=== PATIENT | female | born 1970 | race Hispanic/Latino ===

== ENCOUNTER 2020-12-23 12:56 | Emergency (ER) | payer OTHER ==
[~2020-12-23] VITALS: Ht 162.6 cm; Wt 90.7 kg
[~2020-12-23 12:56] MED LIST: DOXYCYCLINE HY100 MG PO
--- OUTSIDE RECORDS SUMMARY | 2020-12-23 13:00 | XMS ---
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 [facility]her[facility] VISIT COUNT (12 MO.) [address] TOTAL 4 NOTE: Visits indicate total known visits. ED/UCC VISIT TRACKING (12 MO.) 12/23/2020 12:58 [facility] TYPE: Emergency COMPLAINT: - URINE PROBLEM 12/09/2020 11:22 [facility] TYPE: Emergency DIAGNOSES: - Acute cystitis without hematuria - POSSIBLE UTI 11/07/2020 12:38 [facility] TYPE: Emergency DIAGNOSES: - Cystitis, unspecified without hematuria - uti 09/01/2020 16:24 [facility] TYPE: Emergency DIAGNOSES: - Epigastric pain - BLOATING INPATIENT VISIT TRACKING (12 MO.) No inpatient visits to display in this time frame [id number]
[2020-12-23] MEDS ORDERED: PYRIDIUM200 MG PO (13:25)
[2020-12-23] MEDS ORDERED: KEFLEX750 MG PO (13:25)
== END 2020-12-23 16:33 | disposition home or self-care (01) ==
LOC: ED 12:56
DX: R10.30 Lower abdominal pain, unspecified (principal); E11.9 Type 2 diabetes mellitus without complications; Z79.899 Other long term (current) drug therapy
CPT/HCPCS: 74177; 80053; 81001; 85025; 99284-25; Q9967

== ENCOUNTER 2022-09-10 15:15 | Emergency (ER) | payer OTHER ==
[~2022-09-10] VITALS: Ht 162.6 cm; Wt 81.2 kg
[~2022-09-10 15:15] MED LIST changes: +KEFLEX750 MG PO; +PYRIDIUM200 MG PO
[2022-09-10] MEDS ORDERED: ATIVAN1 MG PO (17:38)
--- NOTE | 2022-09-10 20:10 | EKG ---
[facility] [address] [facility] [place], [place] [address] Signed Normal sinus rhythm T wave abnormality, consider anterior ischemia Abnormal ECG No previous ECGs available Confirmed by GOOD SANON MD ([id number] on 09/10/2022 8:10:38 PM Electronically Signed By: GOOD SANON MD 09/10/222009 PATIENT NAME: MARIANN SOLIS Electrocardiogram DATE OF : 70 PHYSICIAN: GOOD SANON MD REPORT #: [id number] REPORT IS CONFIDENTIAL AND NOT TO BE RELEASED WITHOUT AUTHORIZATION
== END 2022-09-10 17:51 | disposition home or self-care (01) ==
LOC: ED 15:15
DX: G47.00 Insomnia, unspecified (principal); R51.9 Headache, unspecified; E11.9 Type 2 diabetes mellitus without complications
CPT/HCPCS: 99284-25

== ENCOUNTER 2024-10-30 13:36 | Emergency (ER) | payer OTHER ==
[~2024-10-30] VITALS: Ht 162.6 cm; Wt 80.7 kg
[~2024-10-30 13:36] MED LIST changes: +ATIVAN1 MG PO
[2024-10-30] MEDS ORDERED: ASPIRIN 81 MG CHEW PO ONE (17:00)
[2024-10-30] MEDS ORDERED: TRAZODONE HCL100 MG PO (17:21)
[2024-10-30 17:45] LABS: BASOPHILS 0.6 % (0-2); EOSINOPHILS 5.9 % (0-6); HEMATOCRIT 36.6 % (35.0-50.0); HEMOGLOBIN 12.5 g/dL (12.0-18.0); LYMPHOCYTES 42.3 % (24-44); MCH 32.3 (27-36); MCHC 34.2 g/dl (30-36); MCV 94.6 fl (81-99); NEUTROPHILS 41.2 % (39-80); PLATELET COUNT 223 K/uL (140-440); RBC 3.87 M/ul (4.3-5.7); RDW 12.9 (10.5-15.0)
[2024-10-30 17:54] LABS: PARTIAL THROMBOPLASTIN TIME 26.6 Sec (22.9-41.3)
[2024-10-30 17:55] LABS: INR 0.96 (0.80-1.30); PROTIME 12.1 Sec (11.2-14.2)
[2024-10-30 18:06] LABS: ALBUMIN 3.5 g/dL (3.4-5.0); ALBUMIN/GLOBULIN RATIO 0.9 (1.1-2.4); ANION GAP 12.4 (7-21); BILIRUBIN, TOTAL 0.2 ng/dL (0.2-1.0); BUN/CREATININE RATIO 20.77 (6.0-28.6); CALCIUM 9.2 mg/dL (8.5-10.1); CREATININE, SERUM 0.77 mg/dL (0.55-1.02); MAGNESIUM 1.9 mg/dL (1.8-2.4); POTASSIUM 3.4 mmol/L (3.5-5.1); PROTEIN, TOTAL 7.4 g/dL (6.4-8.2)
[2024-10-30 19:15] VITALS: BP 140/93
--- NOTE | 2024-10-30 19:52 | EKG ---
[facility] [address] [facility] [place], [place] [address] Signed Normal sinus rhythm T wave abnormality, consider anterior ischemia Abnormal ECG When compared with ECG of 10-SEP-2022 16:31, No significant change was found Confirmed by Nicholas Martinez MD ([id number]) on 10/30/2024 7:52:34 PM Electronically Signed By: NICHOLAS MARTINEZ MD 10/30/241951 PATIENT NAME: MARIANN SOLIS Electrocardiogram DATE OF : 70 PHYSICIAN: NICHOLAS MARTINEZ MD REPORT #: [id number] REPORT IS CONFIDENTIAL AND NOT TO BE RELEASED WITHOUT AUTHORIZATION
== END 2024-10-30 19:15 | disposition home or self-care (01) ==
LOC: ED 13:36
PROVIDERS: Emergency Medicine
DX: R00.2 Palpitations (principal); R07.89 Other chest pain; E11.9 Type 2 diabetes mellitus without complications; Z79.899 Other long term (current) drug therapy
CPT/HCPCS: 36415; 71045; 80053; 83735; 83880; 84484; 85025; 85610; 85730; 93005; 93010; 99285-25; A9270